=== PATIENT | male | born 1975 | race Caucasian/White ===

== ENCOUNTER 2019-12-20 11:53 | Emergency (ER) | payer OTHER ==
[2019-12-20 11:58] VITALS: BP 129/87; PULSE 97; TEMP 97.6
--- NOTE | 2019-12-20 12:36 | XR ---
EXAMINATION TYPE: XR chest 2V DATE OF EXAM: 12/20/2019 COMPARISON: 01/08/2012 HISTORY: Cough and fever for 6 days TECHNIQUE: Frontal and lateral views of the chest are obtained. FINDINGS: There is no focal air space opacity, pleural effusion, or pneumothorax seen. The cardiac silhouette size is within normal limits. The osseous structures are intact. Cholecystectomy clips a re seen. IMPRESSION: No acute cardiopulmonary process.
[2019-12-20 12:38] VITALS: RESP 18
--- NOTE | 2019-12-20 13:28 | ED ---
URI HPI - General Chief Complaint: Upper Respiratory Infection Stated Complaint: cough, fever Time Seen by Provider: 12/20/19 12:10 Source: patient, RN notes reviewed Mode of arrival: ambulatory Limitations: no limitations - History of Present Illness Initial Comments: 44-year-old male presents emergency Department chief complaint cough congestion fever. Patient states he has been sick for last 67 days was seen at PCP and was given antibiotics for sinus infection. Patient states he is a notable back to work. No recent fever states he has a nonproductive cough. No headache no dizziness no chest pain shortness of breath. - Related Data Allergies Allergy/AdvReac Type Severity Reaction Status Date / Time Sulfa (Sulfonamide Allergy Unknown Verified 12/20/19 11:55 Antibiotics) Review of Systems ROS Statement: Those systems with pertinent positive or pertinent negative responses have been documented in the HPI. ROS Other: All systems not noted in ROS Statement are negative. Past Medical History Past Medical History: No Reported History History of Any Multi-Drug Resistant Organisms: None Reported Past Surgical History: Cholecystectomy Past Psychological History: No Psychological Hx Reported Smoking Status: Current every day smoker Past Alcohol Use History: None Reported Past Drug Use History: None Reported General Exam Limitations: no limitations General appearance: alert, in no apparent distress Head exam: Present: atraumatic, normocephalic, normal inspection Eye exam: Present: normal appearance, PERRL, EOMI. Absent: scleral icterus, conjunctival injection, periorbital swelling ENT exam: Present: normal exam, normal oropharynx, mucous membranes moist, TM's normal bilaterally Neck exam: Present: normal inspection, full ROM. Absent: tenderness, meningismus, lymphadenopathy Respiratory exam: Present: normal lung sounds bilaterally. Absent: respiratory distress, wheezes, rales, rhonchi, stridor Cardiovascular Exam: Present: regular rate, normal rhythm, normal heart sounds. Absent: systolic murmur, diastolic murmur, rubs, gallop, clicks Course Vital Signs 12/20/19 12/20/19 11:56 12:35 Temperature 97.6 F Pulse Rate 97 Respiratory 16 18 Rate Blood Pressure 129/87 O2 Sat by Pulse 98 Oximetry Medical Decision Making - Medical Decision Making Chest x-ray negative) the negative patient be discharged patient has prescription for antibiotics and he'll start. Disposition Clinical Impression: Acute upper respiratory infection Disposition: HOME SELF-CARE Condition: Stable Instructions (If sedation given, give patient instructions): Upper Respiratory Infection (ED) Additional Instructions: Please return to the Emergency Department if symptoms worsen or any other concerns. Is patient prescribed a controlled substance at d/c from ED?: No Referrals: Donald Souza MD [Primary Care Provider] - 1-2 days Time of Disposition: 13:28
== END 2019-12-20 13:45 | disposition home or self-care (01) ==
LOC: EC 11:53
DX: J06.9 Acute upper respiratory infection, unspecified (principal); F17.200 Nicotine dependence, unspecified, uncomplicated; Z88.2 Allergy status to sulfonamides; Z86.19 Personal history of other infectious and parasitic diseases
CPT/HCPCS: 71046; 87502; 99283

== ENCOUNTER 2021-10-05 18:35 | Emergency (ER) | payer OTHER ==
[2021-10-05 19:18] VITALS: RESP 18
[2021-10-05] MEDS ORDERED: LIDOCAINE 1% INJ 10MG/ML (20 ML MDV) SQ ONE (20:18)
[2021-10-05] MEDS ORDERED: DIPH,PERTUS(ACELL)TETVAC-LF 0.5 ML VIAL IM ONE (20:19)
--- NOTE | 2021-10-05 20:19 | ED ---
Wound/Laceration HPI - General Chief Complaint: Wound/Laceration Stated Complaint: finger lac Time Seen by Provider: 10/05/21 20:11 Source: patient Mode of arrival: ambulatory Limitations: no limitations - History of Present Illness Initial Comments: This 46-year-old male presents to the emergency department with a laceration of his left hand. Patient states he is trying to cut open a package with his knife when it slipped and sliced his left second finger. He states the knife was clean. He denies being on any blood thinners. He does not remember his last tetanus shot. He states he is still feel his finger but he cannot extend it. Patient denies chest pain, shortness of breath, abdominal pain. - Related Data Previous Rx's Medication Instructions Recorded Cephalexin [Keflex] 500 mg PO Q12HR 7 Days #14 cap 10/05/21 Allergies Allergy/AdvReac Type Severity Reaction Status Date / Time Sulfa (Sulfonamide Allergy Unknown Verified 10/05/21 19:17 Antibiotics) Review of Systems ROS Statement: Those systems with pertinent positive or pertinent negative responses have been documented in the HPI. ROS Other: All systems not noted in ROS Statement are negative. Past Medical History Past Medical History: No Reported History History of Any Multi-Drug Resistant Organisms: None Reported Past Surgical History: Cholecystectomy Past Psychological History: No Psychological Hx Reported Smoking Status: Current every day smoker Past Alcohol Use History: Occasional Past Drug Use History: Marijuana General Exam Limitations: no limitations General appearance: alert, in no apparent distress Respiratory exam: Present: normal lung sounds bilaterally. Absent: respiratory distress, wheezes, rales, rhonchi, stridor Cardiovascular Exam: Present: regular rate, normal rhythm, normal heart sounds. Absent: systolic murmur, diastolic murmur, rubs, gallop, clicks Extremities exam: Present: other (Left index finger with 3 cm laceration. Active bleeding. Tendon tear visualized. Patient unable to extend finger. Sensation intact. Capillary refill less than 3 seconds) Left General: Present: normal inspection Shoulder Exam: Present: normal inspection Upper Arm exam: Present: normal inspection Elbow exam: Present: normal inspection Forearm Wrist exam: Present: normal inspection Hand Wrist exam: Present: normal inspection Hand L/R Back: 1 - 3cm laceration. Unable to extend finger at MCP. Has sensation. Vascular: Present: normal capillary refill. Absent: vascular compromise, Pallo, pulse deficit radial art, pulse deficit ulnar art Neurological exam: Present: alert, oriented X3 Psychiatric exam: Present: normal affect, normal mood Skin exam: Present: warm, dry. Absent: intact Course Vital Signs 10/05/21 19:14 Temperature 97.9 F Pulse Rate 92 Respiratory 18 Rate Blood Pressure 131/82 O2 Sat by Pulse 97 Oximetry Procedures - Laceration Laceration #1 Consent Obtained: verbal consent Indication: laceration Site: hand Description: linear, clean Depth: simple, single layer, involves tendon Pre-repair: wound explored Type of Sutures: nylon Size of Sutures: 5-0 Technique: simple, interrupted Patient Tolerated Procedure: well, no complications - Orthopedic Splinting/Casting Injury #1 Upper Extremity Injury Location: finger Upper Extremity Immobilizer: posterior splint (Left index finger) Medical Decision Making - Medical Decision Making 36-year-old male presents the emergency department with laceration to his left second finger. X-ray showed no fracture. Wound irrigated with tendon tear visualized. 3 sutures loosely placed. Splint applied to left second finger. Can take Tylenol or Motrin for pain. Informed patient of compartment syndrome and to return to emergency department if extreme pain, erythema, or fever present. Tetanus shot administered. Informed patient to follow up with orthopedics within the next day for possible tendon tear. Case discussed with Dr. Wheeler. Patient sent home in stable condition. Disposition Clinical Impression: Laceration of left index finger, Tendon laceration Disposition: HOME SELF-CARE Condition: Stable Additional Instructions: Return to emergency department symptoms worsen or extreme pain occurs. Prescriptions: Cephalexin [Keflex] 500 mg PO Q12HR 7 Days #14 cap Is patient prescribed a controlled substance at d/c from ED?: No Referrals: Donald Souza MD [Primary Care Provider] - 1-2 days Devante Quinteros MD [Medical Doctor] - 1-2 days Decision Time: 22:18
--- NOTE | 2021-10-05 21:24 | XR ---
EXAMINATION TYPE: XR finger LT DATE OF EXAM: 10/05/2021 9:04 PM INDICATION: Patient age:Male; 46 years old; Reason for study: laceration;. COMPARISON: None TECHNIQUE: 3 views of the finger were obtained. FINDINGS: No evidence for radiopaque foreign body. Soft tissue injury not definitely visualized. Norm al alignment of the visualized joints. No acute osseous pathology is identified. No evidence of sof t tissue swelling. IMPRESSION: No acute osseous pathology.
[2021-10-05] MEDS ORDERED: BACITRACIN OINT 1 EACH PACKET TOPICAL ONE (21:46)
[2021-10-05 22:24] VITALS: BP 128/82; PULSE 89; TEMP 98
== END 2021-10-05 22:22 | disposition home or self-care (01) ==
LOC: EC 18:35
DX: S61.211A Laceration without foreign body of left index finger without damage to nail, initial encounter (principal); F17.200 Nicotine dependence, unspecified, uncomplicated; F12.90 Cannabis use, unspecified, uncomplicated; Z88.2 Allergy status to sulfonamides; W26.0XXA Contact with knife, initial encounter
CPT/HCPCS: 73140; 90715; 12002; 90471; 99283; J2001

== ENCOUNTER → 2022-10-24 | Outpatient (CLI) | payer OTHER ==
--- NOTE | 2022-10-24 11:01 | CT ---
EXAMINATION TYPE: CT chest wo con DATE OF EXAM: 10/24/2022 COMPARISON: Chest x-ray 01/08/2012 HISTORY: COPD, Solitary pulmonary nodule CT DLP: 421.80 mGycm, Automated exposure control for dose reduction was used. CONTRAST: Performed injected with 0 mL of Isovue 300. TECHNIQUE: Axial images were obtained at 5 mm thick sections. Reconstructed images are reviewed on [employer] computer in the coronal plane. FINDINGS: Portion of the thyroid visualized is normal. No suspicious lung nodules. There is some mild infiltrate within the lingula. No enlarged mediastinal or hilar adenopathy is evident. The ascending aorta diameter at the level o f the main pulmonary artery is 4.2 cm. The main pulmonary artery diameter at the bifurcation is 2.[address] sections are obtained through the upper abdomen. Small splenule is at the splenic hilum. G allbladder surgically absent. IMPRESSIONS: 1. Ascending thoracic aortic aneurysm of 4.2 cm. 2. No suspicious pulmonary nodule radiographically evident
== END | disposition home or self-care (01) ==
LOC: RADCTMAIN 06:52
PROVIDERS: ATTEND Internal Medicine Pulmonary Disease
DX: J44.0 Chronic obstructive pulmonary disease with (acute) lower respiratory infection (principal); I71.21 Aneurysm of the ascending aorta, without rupture; F17.210 Nicotine dependence, cigarettes, uncomplicated
CPT/HCPCS: 71250

== ENCOUNTER 2025-03-14 08:44 | Day surgery (SDC) | payer OTHER ==
[2025-03-13 09:56] VITALS: BMI 30.9
[2025-03-14 09:26] VITALS: TEMP 97.1
[2025-03-14] MEDS: IV FLUID CONTINUATION 1,000 ML IV ONE (09:29)
[2025-03-14] MEDS: LACTATED RINGERS 1,000 ML IV SCH (09:29)
[2025-03-14] MEDS ORDERED: LIDOCAINE 1% INJ 10MG/ML (20 ML MDV) ONE (09:42)
[2025-03-14] MEDS ORDERED: PROPOFOL 10 MG/ML 20 ML VIAL IV ONE (09:42)
--- NOTE | 2025-03-14 09:55 | P.PCN ---
Date of Procedure: 03/14/25 Procedure(s) Performed: BRIEF HISTORY: Patient is a 49-year-old pleasant white male scheduled for an elective colonoscopy as a part of screening for colon cancer and family history of colon cancer. His mom and dad both were diagnosed with colorectal neoplasia in the 60s respectively. PROCEDURE PERFORMED: Colonoscopy with snare polypectomy. PREOPERATIVE DIAGNOSIS: Screening for colon cancer and family history of colon cancer. IV sedation per Anesthesia. PROCEDURE: After informed consent was obtained, the patient, was brought into the endoscopy unit. IV sedation was administered by Anesthesia under continuous monitoring. Digital rectal examination was normal. Initially the Olympus CF-160 flexible video colonoscope was then inserted in the rectum, gradually advanced into the cecum without any difficulty. Careful examination was performed as the scope was gradually being withdrawn. Ileocecal valve and the appendiceal orifice were visualized and appeared normal. Prep was excellent. Mucosa of the cecum, ascending colon, appeared normal. The transverse colon there was a 7 to 8 mm polyp that was removed by cold snare polypectomy. Rest of the transverse colon, descending colon, sigmoid colon, and rectum appeared normal. Scattered sigmoid diverticulosis. Retroflexion was performed in the rectum and no lesions were seen. The patient tolerated the procedure well. IMPRESSION: 7 to 8 mm transverse colon polyp status post cold snare polypectomy Scattered sigmoid diverticulosis RECOMMENDATIONS: Findings of this examination were discussed with the patient as well as his family. He was advised to follow with the biopsy results have repeat screening colonoscopy every 5 years because of a family history of colon cancer.
[2025-03-14 10:22] VITALS: BP 123/78; PULSE 73; RESP 17
== END 2025-03-14 10:22 | disposition home or self-care (01) ==
LOC: ORWHC2ENDO 08:44
PROVIDERS: ATTEND Internal Medicine Gastroenterology
DX: Z12.11 Encounter for screening for malignant neoplasm of colon (principal); D12.3 Benign neoplasm of transverse colon; K57.30 Diverticulosis of large intestine without perforation or abscess without bleeding; Z80.0 Family history of malignant neoplasm of digestive organs; Z88.2 Allergy status to sulfonamides; Z90.49 Acquired absence of other specified parts of digestive tract; Z98.890 Other specified postprocedural states
CPT/HCPCS: 88305; 45385; J2003; J2704